=== PATIENT | male | born 1975 | race African-American/Black ===

== ENCOUNTER 2021-06-21 18:25 | Emergency (ER) | payer OTHER ==
[~2021-06-21] VITALS: Ht 185.4 cm; Wt 72.6 kg
[2021-06-21 19:38] LABS: ABSOLUTE NEUTROPHILS 2.6 thou/uL (1.4-8.2); EOSINOPHILS 1.4 % (0.0-3.0); HEMOGLOBIN 12.2 gm/dL (14.0-18.0); LYMPHOCYTES 16.7 % (24.0-44.0); MCH 31.1 pg (26.0-34.0); MCV 94.2 fL (80.0-100.0); MONOCYTES 10.7 % (1.0-8.0); PLATELET COUNT 82 thou/uL (150-400); POLYS 70.2 % (36.0-66.0); RBC 3.92 mil/uL (4.50-6.00); RDW 14.8 % (10.5-14.5); WBC 3.8 thou/uL (4.0-11.0)
[2021-06-21 19:56] LABS: CALCIUM 7.8 mg/dL (8.5-10.1); CREATININE 11.8 mg/dL (0.7-1.3); POTASSIUM 4.9 mmol/L (3.5-5.1)
[2021-06-21 20:25] VITALS: BP 116/78
== END 2021-06-21 20:29 | disposition home or self-care (01) ==
LOC: ER 18:25
PROVIDERS: Emergency Medicine
DX: S71.101A Unspecified open wound, right thigh, initial encounter (principal); X58.XXXA Exposure to other specified factors, initial encounter; Y93.89 Activity, other specified; Y92.89 Other specified places as the place of occurrence of the external cause; Y99.8 Other external cause status